=== PATIENT | male | born 1950 | race Caucasian/White ===

== ENCOUNTER 2022-06-30 20:54 | Observation (INO) | payer MEDICARE, OTHER ==
[2022-06-30 21:39] LABS: Mean Corpuscular HGB CONC 34.4 g/dL (32.0-36.0); Mean Corpuscular Hemoglobin 32.8 pg (27.0-31.0); Mean Corpuscular Volume 95.3 fl (78.0-98.0); Mean Platelet Volume 7.9 fL (7.4-10.4); Platelet Count 183 10x3/uL (130-400); RBC Distribution Width 12.5 % (11.5-14.5); Red Blood Cell (RBC) Count 4.87 mill/uL (4.70-6.10)
[2022-06-30 21:58] LABS: ALT (SGPT) 26 U/L (8-55); AST (SGOT) 22 U/L (5-34); Albumin 4.2 g/dL (3.4-4.8); Alkaline Phosphatase 64 U/L (40-110); Anion Gap 12 mmol/L (10-20); BUN (Urea Nitrogen) 16 mg/dL (8.4-25.7); Bilirubin, Total 0.4 mg/dL (0.2-1.2); Calc. Creatinine Clearance 0 mL/min (70-130); Calcium 9.5 mg/dL (7.8-10.44); Carbon Dioxide 23 mmol/L (23-31); Chloride 109 mmol/L (98-107); Estimated GFR 93; Globulin 2.9 g/dL (2.4-3.5); Glucose 133 mg/dL (83-110); Potassium 3.9 mmol/L (3.5-5.1); Protein, Total 7.1 g/dL (5.8-8.1); Sodium 140 mmol/L (136-145)
[2022-06-30 22:10] LABS: Band 7 % (5-11); Eosinophils 2 % (0-10); Lymphocytes 32 % (21-51); MDiff Complete? YES; Monocytes 7 % (0-10); Neutrophil 36 % (42-75); Platelet Morphology Comment Appears Adequate; RBC Morphology Normal; Reactive Lymphocytes 16 % (0-10)
[2022-06-30] MEDS ORDERED: Acetaminophen 500 MG TAB ONE (22:19)
[2022-06-30 23:05] LABS: Acetaminophen Less than 10.0 mcg/mL (10.0-30.0); Alcohol Less than 10 mg/dL (Less than 10); Salicylate Less than 8.0 mg/dL (15.0-30.0)
[2022-06-30 23:39] LABS: Bilirubin Negative (Negative); Blood, Urine Negative (Negative); Clarity Clear (Clear); Glucose, Urine (Dipstick) Normal (Negative); Ketone, Urine Negative (Negative); Leukocyte Negative Leu/uL (Negative); Nitrite Negative (Negative); Protein, Urine (Dipstick) 10 mg/dL (Neg-Trace); Specific Gravity, Urine 1.017 (1.002-1.036); Urobilinogen Normal mg/dL (Less than 2)
[2022-06-30 23:49] LABS: Amphetamine Not Detected (NotDetected); Barbiturates Screen Not Detected (NotDetected); Benzodiazepine Screen Not Detected (NotDetected); Cocaine Metabolite Screen Not Detected (NotDetected); Methadone Not Detected (NotDetected); Methamphetamine Not Detected (NotDetected); Opiate Screen Not Detected (NotDetected); Oxycodone Screen Not Detected (NotDetected); Phencyclidine (PCP) Not Detected (NotDetected); THC/Cannabinoid Screen Not Detected (NotDetected); Tricyclic Screen Not Detected (NotDetected)
[2022-07-01] MEDS ORDERED: Ondansetron ODT 4 MG TAB PO PRN (02:31)
[2022-07-01] MEDS ORDERED: Senokot S 8.6-50 MG TAB PO PRN (02:31)
[2022-07-01 07:05] LABS: #Eosinphils 0.3 thou/uL (0.0-0.7); #Monocytes 0.6 thou/uL (0.11-0.59); #Neutrophils 1.7 thou/uL (1.40-6.50); %Basophils 0.5 % (0.0-1.0); %Eosinophils 5.7 % (0.0-10.0); %Monocytes 13.1 % (0.0-10.0); %Neutrophils 37.7 % (42.0-75.0); Hemoglobin 15.6 g/dL (14.0-18.0); Mean Corpuscular HGB CONC 34.6 g/dL (32.0-36.0); Mean Corpuscular Volume 95.3 fl (78.0-98.0); Mean Platelet Volume 7.4 fL (7.4-10.4); Platelet Count 190 10x3/uL (130-400); RBC Distribution Width 12.5 % (11.5-14.5); Red Blood Cell (RBC) Count 4.72 mill/uL (4.70-6.10); White Blood Cell (WBC) Count 4.6 10x3/uL (4.8-10.8)
[2022-07-01 07:22] LABS: SARS-CoV-2 NAA Rapid Test Not Detected (NotDetected)
[2022-07-01] MEDS ORDERED: metFORMIN XR 500 MG TAB PO SCH (07:30)
[2022-07-01 07:33] LABS: ALT (SGPT) 26 U/L (8-55); AST (SGOT) 22 U/L (5-34); Albumin 4.1 g/dL (3.4-4.8); Alkaline Phosphatase 62 U/L (40-110); Anion Gap 12 mmol/L (10-20); BUN (Urea Nitrogen) 13 mg/dL (8.4-25.7); Bilirubin, Total 0.6 mg/dL (0.2-1.2); Calc. Creatinine Clearance 0 mL/min (70-130); Carbon Dioxide 22 mmol/L (23-31); Chloride 108 mmol/L (98-107); Estimated GFR 94; Globulin 2.7 g/dL (2.4-3.5); Glucose 84 mg/dL (83-110); Potassium 3.4 mmol/L (3.5-5.1); Protein, Total 6.8 g/dL (5.8-8.1); Sodium 139 mmol/L (136-145)
[2022-07-01] MEDS ORDERED: Potassium Chloride 20 MEQ TAB PO SCH ×2 (08:00→13:37)
[2022-07-01] MEDS ORDERED: Potassium Chloride 20 MEQ TAB ONE (08:13)
[2022-07-01] MEDS ORDERED: Acetaminophen 325 MG TAB ONE (08:14)
[2022-07-01] MEDS: Acetaminophen 325 MG TAB PO PRN (08:18)
[2022-07-01] MEDS ORDERED: FLUoxetine HCl 20 MG CAP PO SCH (09:00)
[2022-07-01] MEDS ORDERED: Dextrose 5% in Water 1,000 ML IV PRN (09:08)
[2022-07-01] MEDS ORDERED: Dextrose 50% Abboject 50 ML SYRINGE SLOW IVP PRN (09:08)
[2022-07-01] MEDS ORDERED: HumaLOG 300 UNITS/3 ML VIAL SC PRN ×2 (09:08)
[2022-07-01 09:15] VITALS: BMI 24.3
[2022-07-01] MEDS ORDERED: Famotidine 20 MG TAB ONE (09:17)
[2022-07-01] MEDS ORDERED: Aspirin Chewable 81 MG TAB ONE (09:17)
[2022-07-01] MEDS: Aspirin 81 mg Enteric Coated Tablet PO SCH (09:25)
[2022-07-01] MEDS: Loratadine 10 MG TAB PO SCH (09:26)
[2022-07-01] MEDS: Fenofibrate 48 MG TAB PO SCH (09:26)
[2022-07-01] MEDS: Famotidine 20 MG TAB PO SCH ×2 (09:26→21:00)
[2022-07-01] MEDS: Multivit, Therapeutic 1 TAB PO SCH (09:27)
[2022-07-01] MEDS: DULoxetine 60 MG CAP PO SCH ×2 (09:51→21:00)
[2022-07-01 10:56] LABS: Hemoglobin A1c 5.8 % (4.0-6.0)
[2022-07-01 16:13] LABS: Potassium 4.1 mmol/L (3.5-5.1)
[2022-07-01] MEDS ORDERED: Atorvastatin Calcium 10 MG TAB PO SCH (21:00)
[2022-07-01] MEDS ORDERED: Gabapentin 300 MG CAP PO SCH (21:00)
[2022-07-01] MEDS ORDERED: Atorvastatin Calcium 20 MG TAB PO SCH (21:00)
[2022-07-02] MEDS: Acetaminophen 325 MG TAB PO PRN (06:24)
[2022-07-02 06:27] LABS: #Basophils 0.1 thou/uL (0.0-0.2); #Eosinphils 0.3 thou/uL (0.0-0.7); #Lymphocytes 2.1 thou/uL (1.20-3.40); #Monocytes 0.7 thou/uL (0.11-0.59); #Neutrophils 2.4 thou/uL (1.40-6.50); %Basophils 1.2 % (0.0-1.0); %Eosinophils 4.8 % (0.0-10.0); %Lymphocytes 38.7 % (21.0-51.0); %Monocytes 12.5 % (0.0-10.0); %Neutrophils 42.8 % (42.0-75.0); Hemoglobin 16.6 g/dL (14.0-18.0); Mean Corpuscular HGB CONC 34.2 g/dL (32.0-36.0); Mean Corpuscular Hemoglobin 32.8 pg (27.0-31.0); Mean Corpuscular Volume 95.8 fl (78.0-98.0); Mean Platelet Volume 7.9 fL (7.4-10.4); Platelet Count 193 10x3/uL (130-400); RBC Distribution Width 12.8 % (11.5-14.5); Red Blood Cell (RBC) Count 5.06 mill/uL (4.70-6.10); White Blood Cell (WBC) Count 5.5 10x3/uL (4.8-10.8)
[2022-07-02 06:47] LABS: Anion Gap 15 mmol/L (10-20); BUN (Urea Nitrogen) 14 mg/dL (8.4-25.7); Calc. Creatinine Clearance 107 mL/min (70-130); Calcium 9.7 mg/dL (7.8-10.44); Carbon Dioxide 21 mmol/L (23-31); Chloride 108 mmol/L (98-107); Estimated GFR 94; Glucose 106 mg/dL (83-110); Potassium 4.1 mmol/L (3.5-5.1); Sodium 140 mmol/L (136-145)
[2022-07-02] MEDS: Loratadine 10 MG TAB PO SCH (10:59)
[2022-07-02] MEDS: Fenofibrate 48 MG TAB PO SCH (10:59)
[2022-07-02] MEDS: Famotidine 20 MG TAB PO SCH (10:59)
[2022-07-02] MEDS: Multivit, Therapeutic 1 TAB PO SCH (10:59)
[2022-07-02] MEDS: DULoxetine 60 MG CAP PO SCH (10:59)
[2022-07-02] MEDS: Aspirin 81 mg Enteric Coated Tablet PO SCH (10:59)
[2022-07-02 12:25] VITALS: BP 130/81; TEMP 96.3
== END 2022-07-02 13:30 | disposition home or self-care (01) ==
LOC: ERS 20:54 → ERHOLD 07-01 01:33 → NEURO 07-01 16:53
PROVIDERS: ADMIT Family Medicine; ATTEND Family Medicine
DX: R41.82 Altered mental status, unspecified (principal); M62.81 Muscle weakness (generalized); E11.9 Type 2 diabetes mellitus without complications; E78.2 Mixed hyperlipidemia; Z79.82 Long term (current) use of aspirin; Z79.84 Long term (current) use of oral hypoglycemic drugs; Z79.899 Other long term (current) drug therapy; Z20.822 Contact with and (suspected) exposure to COVID-19
CPT/HCPCS: 70450; 70551; 80048; 80053 ×2; 80306; 80307; 81003; 82962 ×2; 83036; 84132; 85025 ×3; 87086; 95816; 95819; 95957; 99285; G0378 ×3; U0002; 36415; 36416; J1815